=== PATIENT | male | born 1970 | race African-American/Black ===

== ENCOUNTER 2017-06-05 01:13 | Inpatient (IN) | payer SELFPAY ==
[2017-06-05] VITALS (15 sets, daily range): BP systolic 107–148; BP diastolic 77–97
[~2017-06-05] VITALS: Ht 167.6 cm; Wt 86.6 kg
[2017-06-05] MEDS ORDERED: SODIUM CHLORIDE 0.9% 1,000 ML IV ONE ×4 (02:03→09:45)
[2017-06-05 02:26] LABS: Basophils # (auto) 0.1 uL; Eosinophils # (auto) 0 uL; Hemoglobin 17.4 g/dL (13.5-17.5); Monocytes # (auto) 1.6 uL; Monocytes % (auto) 7.2 % (0.0-12.0)
[2017-06-05 02:27] LABS: Basophils % (auto) 0.3 % (0.0-2.0); Lymphocytes # (auto) 0.7 uL; Mean Corpuscular Hemoglobin 32.4 pg (28.0-32.0); Mean Corpuscular Hgb Conc. 30.6 g/dL (32.0-36.0); Mean Corpuscular Volume 105.9 fL (80.0-100.0); Mean Platelet Volume 11.3 fL (6.9-10.8); Neutrophils # (auto) 20.1 uL; Neutrophils % (auto) 89.5 % (37.0-80.0); Nucleated Red Blood Cells % 0.2 %; Platelet Count (auto) 140 10^3/uL (140-450); Red Cell Distribution Width 16.3 % (11.8-14.3); White Blood Cell 22.5 10^3/uL (4.4-10.8)
[2017-06-05] MEDS ORDERED: InsuLIN REG 1unit/0.01ml Soln (100units/ml) IV ONE ×2 (02:30→15:00)
[2017-06-05 02:34] LABS: Hematocrit 56.8 % (41.0-53.0)
[2017-06-05 02:36] LABS: Calcium 11.3 mg/dL (8.5-10.1); Potassium 4.9 mmol/L (3.5-5.1)
[2017-06-05 02:38] LABS: Bilirubin, Total 3.8 mg/dL (0.2-1.0); Total Protein 9.9 g/dL (6.4-8.2)
[2017-06-05 02:39] LABS: BUN/Creatinine Ratio 15.3
[2017-06-05 02:48] LABS: Urine Bilirubin Negative (Negative); Urine Blood 1+ /uL (Negative); Urine Color Yellow (Yellow); Urine Glucose 4+ mg/dL (Normal); Urine Granular Cast FEW /lpf (0); Urine Ketone TRACE (Negative); Urine Mucus FEW (None Seen); Urine Nitrite Negative (Negative); Urine RBC <1 /hpf (0 - 3); Urine Squamous Epithelial Cell FEW /hpf (<5); Urine Urobilinogen Normal (Negative)
[2017-06-05 02:59] LABS: INR 1.11 (0.9-1.15); Partial Thromboplastin Time 21.9 sec (22.64-33.71); Prothrombin Time 12.1 sec (9.37-12.3)
[2017-06-05 03:09] LABS: B-Type Natriuretic Peptide 26.1 pg/mL (0-100); Temperature: 22.2 C (20.0-25.0)
[2017-06-05] MEDS ORDERED: InsuLIN R (HUMAN) 100 UNITS in SODIUM CHL 0.9% 99 ML IV SCH (03:19)
[2017-06-05 03:22] LABS: Allen Test Yes; Base Excess -11.8 mmol/L (-2.0-2.0); Blood 02Sat 91.6 % (96-100); Blood COHb 1.7 % (0.5-1.5); Blood MetHb 0.3 % (0.0-1.5); HCO3 14.3 mmol/L (22-26.0); HHb 8.2 % (0.0-5.0); MODE ROOM AIR; O2Hb 89.8 % (94.0-97.0); PO2 76.6 mmHg (80.0-100.0); PO2(T) 76.6 mmHg (80.0-100.0); Sample Type Arterial; pH 7.243 (7.350-7.450)
[2017-06-05] MEDS ORDERED: DEXTROSE (50%) 50ML SYRG IV PRN ×3 (03:30→19:45)
[2017-06-05 03:48] LABS: Lactic Acid w/Reflex 6.2 mmol/L (0.4-2.0)
[2017-06-05 04:09] LABS: REFLEX LACTIC ACID YES OR NO YES
[2017-06-05] MEDS ORDERED: cefTRIAXone 1GM/50ML D5W 50 ML IV ONE (04:15)
[2017-06-05] MEDS ORDERED: ACCU-CHEK COMFORT CURVE STRIP VI SCH ×2 (04:30→21:00)
[2017-06-05] MEDS ORDERED: FAMOTIDINE (10MG/ML) 2ML VL IV ONE (05:30)
[2017-06-05] MEDS ORDERED: ONDANSETRON HCL 4 MG/2 ML VIAL IV ONE (05:30)
[2017-06-05] MEDS ORDERED: SODIUM CHLORIDE 0.9% 1,000 ML IV SCH ×4 (06:39→14:00)
[2017-06-05] MEDS ORDERED: ONDANSETRON HCL 4 MG/2 ML VIAL IV PRN (06:45)
[2017-06-05] MEDS ORDERED: MORPHINE SULF INJ 2 MG/ML SYRINGE 1ML IV PRN (06:45)
[2017-06-05] MEDS ORDERED: NITROGLYCERIN 0.4 MG SL TAB SL PRN (06:45)
[2017-06-05] MEDS: InsuLIN R (HUMAN) 100 UNITS in SODIUM CHL 0.9% 99 ML IV SCH ×3 (06:51→16:39)
[2017-06-05] MEDS ORDERED: VANCOMYCIN PER PHARMACY 0 MG IV SCH (07:00)
[2017-06-05] MEDS: ACCU-CHEK COMFORT CURVE STRIP VI SCH ×11 (07:42→22:46)
[2017-06-05] MEDS: PIPERACILLIN-TAZOB 3.375GM 100 ML IV SCH ×3 (08:06→18:26)
[2017-06-05 08:08] LABS: Lactic Acid w/Reflex 4.3 mmol/L (0.4-2.0)
[2017-06-05 08:13] LABS: BUN/Creatinine Ratio 18.7; Calcium 8.8 mg/dL (8.5-10.1); Potassium 3.8 mmol/L (3.5-5.1)
[2017-06-05 08:17] LABS: Amylase 559 U/L (25-115)
[2017-06-05] MEDS ORDERED: SOD CHL 0.45% WITH 20MEQ KCL 1,000 ML IV SCH ×2 (08:30→11:45)
[2017-06-05 08:42] LABS: REFLEX LACTIC ACID YES OR NO YES
[2017-06-05 09:28] LABS: BUN/Creatinine Ratio 19.2; Calcium 9.5 mg/dL (8.5-10.1); Potassium 3.9 mmol/L (3.5-5.1)
[2017-06-05] MEDS: POTASSIUM CHL 20MEQ/100ML 100 ML IV SCH ×2 (09:58→11:23)
[2017-06-05] MEDS ORDERED: VANCOMYCIN 1GM/250ML D5W 250 ML IV SCH (10:00)
[2017-06-05 11:47] LABS: Urine Bilirubin Negative (Negative); Urine Blood 1+ /uL (Negative); Urine Color Yellow (Yellow); Urine Glucose 4+ mg/dL (Normal); Urine Ketone Negative (Negative); Urine Nitrite Negative (Negative); Urine RBC <1 /hpf (0 - 3); Urine Urobilinogen Normal (Negative)
[2017-06-05 12:58] LABS: Calcium 9.1 mg/dL (8.5-10.1); Potassium 4.4 mmol/L (3.5-5.1)
[2017-06-05] MEDS: PROMETHAZINE HCL 25 MG/ML 1ML IV PRN (13:08)
[2017-06-05 13:26] LABS: BUN/Creatinine Ratio 17.8
[2017-06-05] MEDS ORDERED: DILTIAZEM HCL 25 MG/5 ML VIAL IV ONE ×2 (13:26→13:30)
[2017-06-05 13:48] LABS: Magnesium 3.9 mg/dL (1.6-2.6); Phosphorus 1.4 mg/dL (2.5-4.90)
[2017-06-05] MEDS ORDERED: THIAMINE HCL 100 MG/ML 2ML VIAL IV ONE (15:00)
[2017-06-05] MEDS ORDERED: PANTOPRAZOLE 40 MG/10 ML VIAL IV ONE (15:00)
[2017-06-05 15:21] LABS: Base Excess -3.2 mmol/L (-2.0-2.0); Blood 02Sat 94.6 % (96-100); Blood COHb 1.1 % (0.5-1.5); Blood MetHb 0.3 % (0.0-1.5); HCO3 20.7 mmol/L (22-26.0); HHb 5.3 % (0.0-5.0); MODE NASAL CANNULA; O2Hb 93.3 % (94.0-97.0); PO2 78.4 mmHg (80.0-100.0); PO2(T) 78.4 mmHg (80.0-100.0); Room 1020-ERT; Sample Type Arterial; pH 7.402 (7.350-7.450)
[2017-06-05] MEDS: D5W/SOD CHL 0.45%/KCL 20MEQ 1,000 ML IV SCH ×2 (15:28→23:20)
[2017-06-05 22:47] LABS: BUN/Creatinine Ratio 14.9; Calcium 9.1 mg/dL (8.5-10.1); Potassium 4.1 mmol/L (3.5-5.1)
[2017-06-06] VITALS (31 sets, daily range): BP systolic 116–166; BP diastolic 54–102
[2017-06-06] MEDS: ACCU-CHEK COMFORT CURVE STRIP VI SCH ×16 (00:25→22:26)
[2017-06-06] MEDS: PIPERACILLIN-TAZOB 3.375GM 100 ML IV SCH ×4 (00:41→18:38)
[2017-06-06 04:01] LABS: Basophils # (auto) 0 uL; Basophils % (auto) 0.1 % (0.0-2.0); Eosinophils # (auto) 0 uL; Eosinophils % (auto) 0.1 % (0.0-7.0); Hematocrit 45.4 % (41.0-53.0); Hemoglobin 14.6 g/dL (13.5-17.5); Lymphocytes # (auto) 0.8 uL; Mean Corpuscular Hemoglobin 32.2 pg (28.0-32.0); Mean Corpuscular Hgb Conc. 32.2 g/dL (32.0-36.0); Mean Platelet Volume 10.3 fL (6.9-10.8); Monocytes # (auto) 1.3 uL; Monocytes % (auto) 7.1 % (0.0-12.0); Neutrophils # (auto) 16.6 uL; Neutrophils % (auto) 88.7 % (37.0-80.0); Nucleated Red Blood Cells % 0.2 %; Platelet Count (auto) 94 10^3/uL (140-450); Red Cell Distribution Width 16.6 % (11.8-14.3); White Blood Cell 18.7 10^3/uL (4.4-10.8)
[2017-06-06 04:20] LABS: Albumin 3.2 g/dL (3.4-5.0); Calcium 8.8 mg/dL (8.5-10.1); Potassium 4.5 mmol/L (3.5-5.1)
[2017-06-06 04:35] LABS: Total Protein 7.2 g/dL (6.4-8.2)
[2017-06-06] MEDS: D5W 5% 1,000 ML IV SCH ×3 (08:20→21:05)
[2017-06-06] MEDS: THIAMINE HCL 100 MG/ML 2ML VIAL IV SCH (10:11)
[2017-06-06] MEDS: PANTOPRAZOLE 40 MG/10 ML VIAL IV SCH (10:11)
[2017-06-06] MEDS: InsuLIN R (HUMAN) 100 UNITS in SODIUM CHL 0.9% 99 ML IV SCH ×2 (19:27→21:31)
[2017-06-06] MEDS: MORPHINE SULF INJ 2 MG/ML SYRINGE 1ML IV PRN (22:37)
[2017-06-07] VITALS (68 sets, daily range): BP systolic 127–165; BP diastolic 67–117
[2017-06-07] MEDS: ACCU-CHEK COMFORT CURVE STRIP VI SCH ×17 (00:05→23:59)
[2017-06-07] MEDS: PIPERACILLIN-TAZOB 3.375GM 100 ML IV SCH ×4 (01:25→18:37)
[2017-06-07 02:41] LABS: Basophils # (auto) 0.1 uL; Basophils % (auto) 0.4 % (0.0-2.0); Eosinophils # (auto) 0.1 uL; Eosinophils % (auto) 0.4 % (0.0-7.0); Hematocrit 40.1 % (41.0-53.0); Lymphocytes # (auto) 1.2 uL; Lymphocytes % (auto) 7.7 % (10.0-50.0); Mean Corpuscular Hemoglobin 31.9 pg (28.0-32.0); Mean Corpuscular Hgb Conc. 32.5 g/dL (32.0-36.0); Mean Corpuscular Volume 98.2 fL (80.0-100.0); Mean Platelet Volume 9.6 fL (6.9-10.8); Monocytes # (auto) 0.9 uL; Neutrophils # (auto) 12.9 uL; Neutrophils % (auto) 85.5 % (37.0-80.0); Nucleated Red Blood Cells % 0.2 %; Platelet Count (auto) 86 10^3/uL (140-450); Red Cell Distribution Width 16.5 % (11.8-14.3); White Blood Cell 15.1 10^3/uL (4.4-10.8)
[2017-06-07] MEDS ORDERED: FUROSEMIDE 20 MG/2 ML VIAL ONE (02:47)
[2017-06-07] MEDS ORDERED: FUROSEMIDE 20 MG/2 ML VIAL IV ONE (03:00)
[2017-06-07 03:04] LABS: BUN/Creatinine Ratio 11.4; Calcium 7.7 mg/dL (8.5-10.1); Potassium 3.4 mmol/L (3.5-5.1)
[2017-06-07] MEDS: D5W 5% 1,000 ML IV SCH (03:45)
[2017-06-07] MEDS: MORPHINE SULF INJ 2 MG/ML SYRINGE 1ML IV PRN (06:25)
[2017-06-07] MEDS: InsuLIN R (HUMAN) 100 UNITS in SODIUM CHL 0.9% 99 ML IV SCH ×2 (07:54→23:37)
[2017-06-07] MEDS ORDERED: POTASSIUM PHOSPHATE 44 MEQ in SODIUM CHL 0.9% 250 ML IV ONE (08:15)
[2017-06-07] MEDS: THIAMINE HCL 100 MG/ML 2ML VIAL IV SCH (08:57)
[2017-06-07] MEDS: PANTOPRAZOLE 40 MG/10 ML VIAL IV SCH (08:58)
[2017-06-07] MEDS: POTASSIUM CHLORIDE 20 MEQ in D5W 5% 1,000 ML IV SCH ×2 (08:58→23:59)
[2017-06-07 09:19] LABS: Amylase 302 U/L (25-115)
[2017-06-07 18:27] LABS: BUN/Creatinine Ratio 9.1; Calcium 7.2 mg/dL (8.5-10.1); Magnesium 2.1 mg/dL (1.6-2.6); Potassium 3.7 mmol/L (3.5-5.1)
[2017-06-07] MEDS: PROMETHAZINE HCL 25 MG/ML 1ML IV PRN (19:40)
[2017-06-07] MEDS ORDERED: METOPROLOL TARTRATE 25 MG TAB PO ONE (22:45)
[2017-06-08] VITALS (56 sets, daily range): BP systolic 88–151; BP diastolic 39–86
[2017-06-08] MEDS: MORPHINE SULF INJ 2 MG/ML SYRINGE 1ML IV PRN (00:02)
[2017-06-08] MEDS: PIPERACILLIN-TAZOB 3.375GM 100 ML IV SCH ×2 (00:30→06:37)
[2017-06-08] MEDS: ACCU-CHEK COMFORT CURVE STRIP VI SCH ×10 (01:47→21:54)
[2017-06-08] MEDS: ALBUTEROL SULF 2.5 MG/0.5ML(0.5%) NEB SOLN NEB PRN ×2 (03:09→03:42)
[2017-06-08 03:39] LABS: Basophils # (auto) 0 uL; Basophils % (auto) 0.4 % (0.0-2.0); Eosinophils # (auto) 0.1 uL; Eosinophils % (auto) 0.5 % (0.0-7.0); Hematocrit 36.8 % (41.0-53.0); Hemoglobin 12.3 g/dL (13.5-17.5); Lymphocytes # (auto) 0.9 uL; Lymphocytes % (auto) 8.2 % (10.0-50.0); Mean Corpuscular Hemoglobin 32.7 pg (28.0-32.0); Mean Corpuscular Hgb Conc. 33.4 g/dL (32.0-36.0); Mean Platelet Volume 10.3 fL (6.9-10.8); Monocytes # (auto) 0.8 uL; Monocytes % (auto) 7.1 % (0.0-12.0); Neutrophils # (auto) 9.6 uL; Neutrophils % (auto) 83.8 % (37.0-80.0); Nucleated Red Blood Cells % 0.2 %; Platelet Count (auto) 71 10^3/uL (140-450); White Blood Cell 11.4 10^3/uL (4.4-10.8)
[2017-06-08 03:59] LABS: Albumin 2.7 g/dL (3.4-5.0); BUN/Creatinine Ratio 9.3; Bilirubin, Total 3.3 mg/dL (0.2-1.0); Calcium 7.2 mg/dL (8.5-10.1); Phosphorus 2.1 mg/dL (2.5-4.90); Potassium 3.4 mmol/L (3.5-5.1); Total Protein 6.3 g/dL (6.4-8.2)
[2017-06-08] MEDS ORDERED: METOCLOPRAMIDE HCL 5MG/ml INJ 2ml VIAL IV ONE (08:30)
[2017-06-08] MEDS ORDERED: POTASSIUM PHOSPHATE 44 MEQ in SODIUM CHL 0.9% 250 ML IV ONE (08:30)
[2017-06-08] MEDS ORDERED: INSULIN DETEMIR(LEVEMIR) 1unit/0.01ml Soln (100units/ml) SC ONE (08:30)
[2017-06-08] MEDS ORDERED: ACETAMINOPHEN 325 MG TAB PO PRN (08:45)
[2017-06-08] MEDS: PANTOPRAZOLE 40 MG TAB PO SCH ×2 (09:28→21:54)
[2017-06-08] MEDS: THIAMINE HCL 100 MG/ML 2ML VIAL IV SCH (09:31)
[2017-06-08] MEDS ORDERED: METOPROLOL TARTRATE 25 MG TAB PO SCH (10:00)
[2017-06-08] MEDS: POTASSIUM CHLORIDE 20 MEQ in D5W 5% 1,000 ML IV SCH ×2 (10:45→17:06)
[2017-06-08] MEDS ORDERED: DEXTROSE (50%) 50ML SYRG IV PRN (10:45)
[2017-06-08] MEDS: InsuLIN REG 1unit/0.01ml Soln (100units/ml) SC SCH ×3 (11:54→21:54)
[2017-06-08] MEDS ORDERED: InsuLIN R (HUMAN) 100 UNITS in SODIUM CHL 0.9% 99 ML IV SCH (19:37)
[2017-06-09] VITALS (10 sets, daily range): BP systolic 103–132; BP diastolic 54–86
[2017-06-09] MEDS: MORPHINE SULF INJ 2 MG/ML SYRINGE 1ML IV PRN (00:33)
[2017-06-09] MEDS: POTASSIUM CHLORIDE 20 MEQ in D5W 5% 1,000 ML IV SCH ×3 (02:45→23:46)
[2017-06-09 03:42] LABS: Basophils # (auto) 0 uL; Basophils % (auto) 0.5 % (0.0-2.0); Eosinophils # (auto) 0.1 uL; Eosinophils % (auto) 0.8 % (0.0-7.0); Hematocrit 36.3 % (41.0-53.0); Hemoglobin 12.2 g/dL (13.5-17.5); Lymphocytes # (auto) 0.9 uL; Lymphocytes % (auto) 9.6 % (10.0-50.0); Mean Corpuscular Hemoglobin 32.9 pg (28.0-32.0); Mean Corpuscular Hgb Conc. 33.6 g/dL (32.0-36.0); Mean Corpuscular Volume 97.8 fL (80.0-100.0); Mean Platelet Volume 10.5 fL (6.9-10.8); Monocytes # (auto) 0.6 uL; Monocytes % (auto) 6.8 % (0.0-12.0); Neutrophils # (auto) 7.7 uL; Neutrophils % (auto) 82.3 % (37.0-80.0); Nucleated Red Blood Cells % 0.2 %; Platelet Count (auto) 81 10^3/uL (140-450); Red Cell Distribution Width 15.4 % (11.8-14.3); White Blood Cell 9.3 10^3/uL (4.4-10.8)
[2017-06-09 03:58] LABS: Albumin 2.7 g/dL (3.4-5.0); BUN/Creatinine Ratio 11.1; Calcium 7.7 mg/dL (8.5-10.1); Potassium 3.8 mmol/L (3.5-5.1)
[2017-06-09 04:02] LABS: Total Protein 6.5 g/dL (6.4-8.2)
[2017-06-09] MEDS: InsuLIN REG 1unit/0.01ml Soln (100units/ml) SC SCH ×4 (06:38→22:41)
[2017-06-09] MEDS: ACCU-CHEK COMFORT CURVE STRIP VI SCH ×4 (06:38→22:00)
[2017-06-09] MEDS ORDERED: LEVALBUTEROL HCL 1.25 MG/3 ML NEB NEB PRN (07:15)
[2017-06-09] MEDS ORDERED: INSULIN DETEMIR(LEVEMIR) 1unit/0.01ml Soln (100units/ml) SC ONE (09:00)
[2017-06-09] MEDS: PANTOPRAZOLE 40 MG TAB PO SCH ×2 (10:40→22:41)
[2017-06-09] MEDS: THIAMINE HCL 100 MG/ML 2ML VIAL IV SCH (10:40)
[2017-06-09] MEDS: INSULIN DETEMIR(LEVEMIR) 1unit/0.01ml Soln (100units/ml) SC SCH (22:42)
[2017-06-10 05:00] VITALS: BP 123/76
[2017-06-10 05:19] LABS: Basophils # (auto) 0 uL; Basophils % (auto) 0.2 % (0.0-2.0); Eosinophils # (auto) 0.1 uL; Eosinophils % (auto) 1.1 % (0.0-7.0); Hematocrit 35.7 % (41.0-53.0); Lymphocytes # (auto) 0.9 uL; Lymphocytes % (auto) 8.6 % (10.0-50.0); Mean Corpuscular Hemoglobin 32.9 pg (28.0-32.0); Mean Corpuscular Hgb Conc. 33.7 g/dL (32.0-36.0); Mean Corpuscular Volume 97.6 fL (80.0-100.0); Mean Platelet Volume 10.5 fL (6.9-10.8); Monocytes # (auto) 0.7 uL; Neutrophils # (auto) 8.6 uL; Neutrophils % (auto) 83.1 % (37.0-80.0); Nucleated Red Blood Cells % 0.1 %; Platelet Count (auto) 101 10^3/uL (140-450); Red Cell Distribution Width 15.2 % (11.8-14.3); White Blood Cell 10.4 10^3/uL (4.4-10.8)
[2017-06-10 05:37] LABS: Calcium 9.7 mg/dL (8.5-10.1); Potassium 4.2 mmol/L (3.5-5.1)
[2017-06-10 05:41] LABS: BUN/Creatinine Ratio 17.1
[2017-06-10] MEDS: ACCU-CHEK COMFORT CURVE STRIP VI SCH ×4 (06:36→22:00)
[2017-06-10] MEDS: INSULIN DETEMIR(LEVEMIR) 1unit/0.01ml Soln (100units/ml) SC SCH ×2 (06:37→22:32)
[2017-06-10] MEDS: InsuLIN REG 1unit/0.01ml Soln (100units/ml) SC SCH ×4 (06:38→22:33)
[2017-06-10 09:43] VITALS: BP 140/79
[2017-06-10] MEDS: ENOXAPARIN SOD 40 MG/0.4 ML SYRINGE SC SCH (11:26)
[2017-06-10] MEDS: PANTOPRAZOLE 40 MG TAB PO SCH ×2 (11:26→22:31)
[2017-06-10] MEDS: THIAMINE HCL 100 MG/ML 2ML VIAL IV SCH (11:26)
[2017-06-10 11:41] VITALS: BP 136/76
[2017-06-10] MEDS: glipiZIDE 5 MG TAB PO SCH (11:57)
[2017-06-10] MEDS: POTASSIUM CHLORIDE 20 MEQ in D5W 5% 1,000 ML IV SCH (12:26)
[2017-06-10 16:59] VITALS: BP 125/69
[2017-06-10 20:00] VITALS: BP 124/85
[2017-06-10 21:33] VITALS: BP 124/85
[2017-06-11] MEDS: POTASSIUM CHLORIDE 20 MEQ in D5W 5% 1,000 ML IV SCH (01:54)
[2017-06-11 04:30] VITALS: BP 119/78
[2017-06-11] MEDS: glipiZIDE 5 MG TAB PO SCH (07:08)
[2017-06-11] MEDS: InsuLIN REG 1unit/0.01ml Soln (100units/ml) SC SCH ×2 (07:09→11:30)
[2017-06-11] MEDS: ACCU-CHEK COMFORT CURVE STRIP VI SCH ×2 (07:10→11:30)
[2017-06-11] MEDS: INSULIN DETEMIR(LEVEMIR) 1unit/0.01ml Soln (100units/ml) SC SCH (07:10)
[2017-06-11 07:44] VITALS: BP 143/87
[2017-06-11] MEDS: THIAMINE HCL 100 MG/ML 2ML VIAL IV SCH (09:11)
[2017-06-11] MEDS: PANTOPRAZOLE 40 MG TAB PO SCH (09:12)
[2017-06-11] MEDS: ENOXAPARIN SOD 40 MG/0.4 ML SYRINGE SC SCH (09:12)
[2017-06-11 11:39] VITALS: BP 143/87
[2017-06-11 13:00] VITALS: BP 115/63
== END 2017-06-11 14:10 | disposition home or self-care (01) | DRG 871 ==
LOC: EDBD 01:13 → ER 01:21 → TELE 01:22 → ICU WEST 20:05 → TELE-CENTR 06-09 13:50
PROVIDERS: ADMIT Nurse Practitioner Family; ATTEND Internal Medicine
DX: A41.9 Sepsis, unspecified organism (principal); J96.90 Respiratory failure, unspecified, unspecified whether with hypoxia or hypercapnia; N17.0 Acute kidney failure with tubular necrosis; K85.90 Acute pancreatitis without necrosis or infection, unspecified; E13.10 Other specified diabetes mellitus with ketoacidosis without coma; G93.41 Metabolic encephalopathy; E87.0 Hyperosmolality and hypernatremia; D64.9 Anemia, unspecified; E86.0 Dehydration; E87.6 Hypokalemia; Z83.3 Family history of diabetes mellitus; Z79.4 Long term (current) use of insulin
CPT/HCPCS: 36415; 36600; 70450; 71010; 74176; 76705; 78582; 80048; 80053; 80061; 80202; 80307; 81001; 82010; 82040; 82150; 82805; 82962; 83036; 83605; 83690; 83735; 83880; 83930; 83935; 84100; 84300; 84443; 84484; 85025; 85379; 85610; 85730; 87040; 87081; 93005; 93306; 93970; 94640; 96361; 96365; 96375; C9113; J0696; J1815; J2405; J2543; J3480; J3490

== ENCOUNTER 2017-06-18 01:58 | Inpatient (IN) | payer SELFPAY ==
[~2017-06-18] VITALS: Ht 167.6 cm; Wt 84.0 kg
[2017-06-18] MEDS ORDERED: SODIUM CHLORIDE 0.9% 1,000 ML IV ONE ×2 (02:30→02:45)
[2017-06-18] MEDS ORDERED: InsuLIN REG 1unit/0.01ml Soln (100units/ml) IV ONE ×2 (02:30→02:45)
[2017-06-18 03:22] LABS: Hemoglobin 12.4 g/dL (13.5-17.5); Mean Corpuscular Hemoglobin 31.7 pg (28.0-32.0); Mean Corpuscular Hgb Conc. 30.3 g/dL (32.0-36.0); Mean Corpuscular Volume 104.5 fL (80.0-100.0); Mean Platelet Volume 11.2 fL (6.9-10.8); Platelet Count (auto) 249 10^3/uL (140-450); Red Cell Distribution Width 17.8 % (11.8-14.3); White Blood Cell 16.8 10^3/uL (4.4-10.8)
[2017-06-18 03:23] LABS: Metamyelocytes % 0; Myelocytes % 0; Promyelocytes % 0; Reactive Lymphocytes 0
[2017-06-18 03:48] LABS: Macrocytosis Moderate; Platelet Estimate Adequate; Polychromasia Slight; Stomatocytes Few
[2017-06-18 05:20] LABS: Potassium 6.5 mmol/L (3.5-5.1)
[2017-06-18 05:21] LABS: Albumin 3.4 g/dL (3.4-5.0); BUN/Creatinine Ratio 19.5; Bilirubin, Total 2.2 mg/dL (0.2-1.0); Calcium 8.8 mg/dL (8.5-10.1); Total Protein 8.4 g/dL (6.4-8.2)
[2017-06-18] MEDS ORDERED: InsuLIN R (HUMAN) 100 UNITS in SODIUM CHL 0.9% 99 ML IV SCH (05:34)
[2017-06-18] MEDS ORDERED: DEXTROSE (50%) 50ML SYRG IV PRN (05:45)
[2017-06-18] MEDS ORDERED: NITROGLYCERIN 0.4 MG SL TAB SL PRN (05:45)
[2017-06-18] MEDS ORDERED: CALCIUM CHL 100MG/ML 1,000 MG in D5W 5% 100 ML IV ONE (05:45)
[2017-06-18] MEDS ORDERED: MORPHINE SULF INJ 2 MG/ML SYRINGE 1ML IV PRN ×2 (05:45→06:30)
[2017-06-18] MEDS ORDERED: SODIUM POLYSTYRENE SULF 15GM/60ML SUSP PO ONE (05:45)
[2017-06-18 05:52] LABS: Urine RBC None Seen /hpf (0 - 3)
[2017-06-18 06:00] LABS: Base Excess -9.9 mmol/L (-2.0-2.0); Blood 02Sat 96.4 % (96-100); Blood COHb 0.5 % (0.5-1.5); Blood MetHb 0.4 % (0.0-1.5); HCO3 15.3 mmol/L (22-26.0); HHb 3.6 % (0.0-5.0); MODE NASAL CANNULA; O2Hb 95.5 % (94.0-97.0); PCO2 31.3 mmHg (35.0-45.0); PCO2(T) 31.3 mmHg (35.0-45.0); PO2 105.9 mmHg (80.0-100.0); PO2(T) 105.9 mmHg (80.0-100.0); Sample Type Arterial; pH 7.307 (7.350-7.450)
[2017-06-18 06:15] LABS: Urine Bilirubin Negative (Negative); Urine Blood Negative /uL (Negative); Urine Color Yellow (Yellow); Urine Glucose 4+ mg/dL (Normal); Urine Ketone 1+ (Negative); Urine Nitrite Negative (Negative); Urine Squamous Epithelial Cell FEW /hpf (<5); Urine Urobilinogen Normal (Negative)
[2017-06-18] MEDS ORDERED: ONDANSETRON HCL 4 MG/2 ML VIAL IV PRN (06:30)
[2017-06-18 07:09] LABS: Magnesium 3.8 mg/dL (1.6-2.6); Phosphorus 7.9 mg/dL (2.5-4.90)
[2017-06-18] MEDS: ACCU-CHEK COMFORT CURVE STRIP VI SCH ×12 (07:30→22:36)
[2017-06-18] MEDS: SODIUM CHLORIDE 0.9% 1,000 ML IV SCH ×2 (08:03→09:03)
[2017-06-18] MEDS ORDERED: SODIUM CHLORIDE 0.9% 1,000 ML IV SCH ×2 (09:34→11:34)
[2017-06-18] MEDS: cefTRIAXone 1GM/50ML D5W 50 ML IV SCH (10:59)
[2017-06-18 11:28] LABS: Amylase 54 U/L (25-115)
[2017-06-18 17:48] LABS: BUN/Creatinine Ratio 19.8; Calcium 9.2 mg/dL (8.5-10.1); Potassium 3.3 mmol/L (3.5-5.1)
[2017-06-18] MEDS: SOD CHL 0.45% 1,000 ML IV SCH (18:57)
[2017-06-19] MEDS: ACCU-CHEK COMFORT CURVE STRIP VI SCH ×6 (00:02→20:20)
[2017-06-19] MEDS ORDERED: DEXTROSE (50%) 50ML SYRG IV PRN ×2 (00:30→13:30)
[2017-06-19 01:15] LABS: BUN/Creatinine Ratio 18.1; Calcium 9.1 mg/dL (8.5-10.1); Potassium 3.2 mmol/L (3.5-5.1)
[2017-06-19] MEDS: SOD CHL 0.45% 1,000 ML IV SCH ×2 (01:32→07:46)
[2017-06-19] MEDS: InsuLIN REG 1unit/0.01ml Soln (100units/ml) SC SCH ×5 (04:03→20:21)
[2017-06-19 06:06] LABS: Basophils # (auto) 0.1 uL; Basophils % (auto) 0.7 % (0.0-2.0); Eosinophils # (auto) 0 uL; Eosinophils % (auto) 0.3 % (0.0-7.0); Hematocrit 33.1 % (41.0-53.0); Hemoglobin 10.8 g/dL (13.5-17.5); Lymphocytes # (auto) 0.8 uL; Lymphocytes % (auto) 9.4 % (10.0-50.0); Mean Corpuscular Hemoglobin 32.4 pg (28.0-32.0); Mean Corpuscular Hgb Conc. 32.8 g/dL (32.0-36.0); Mean Corpuscular Volume 98.9 fL (80.0-100.0); Mean Platelet Volume 9.7 fL (6.9-10.8); Monocytes # (auto) 0.5 uL; Monocytes % (auto) 5.5 % (0.0-12.0); Neutrophils # (auto) 7.3 uL; Neutrophils % (auto) 84.1 % (37.0-80.0); Nucleated Red Blood Cells % 0.2 %; Platelet Count (auto) 136 10^3/uL (140-450); Red Cell Distribution Width 17.3 % (11.8-14.3); White Blood Cell 8.7 10^3/uL (4.4-10.8)
[2017-06-19 06:23] LABS: Albumin 2.8 g/dL (3.4-5.0); Calcium 8.7 mg/dL (8.5-10.1); Potassium 3.4 mmol/L (3.5-5.1)
[2017-06-19 06:28] LABS: BUN/Creatinine Ratio 16.7
[2017-06-19 06:41] LABS: Bilirubin, Total 1.9 mg/dL (0.2-1.0); Total Protein 6.8 g/dL (6.4-8.2)
[2017-06-19] MEDS: cefTRIAXone 1GM/50ML D5W 50 ML IV SCH (08:29)
[2017-06-19] MEDS ORDERED: POTASSIUM CHLORIDE 20 MEQ in D5W 5% 1,000 ML IV SCH (13:15)
[2017-06-19] MEDS ORDERED: LEVEMIR SC (15:12)
[2017-06-19] MEDS ORDERED: METF-370 PO (15:12)
[2017-06-19 17:00] VITALS: BP 122/68
[2017-06-19] MEDS: Boost Glucose Control 8 Ounces PO SCH (18:02)
[2017-06-19 19:23] LABS: BUN/Creatinine Ratio 15.4; Calcium 8.4 mg/dL (8.5-10.1); Potassium 3.2 mmol/L (3.5-5.1)
[2017-06-19 21:40] VITALS: BP 131/74
[2017-06-20] MEDS: ACCU-CHEK COMFORT CURVE STRIP VI SCH ×6 (00:06→20:38)
[2017-06-20] MEDS: InsuLIN REG 1unit/0.01ml Soln (100units/ml) SC SCH ×6 (00:13→20:38)
[2017-06-20] MEDS ORDERED: D5W/ SOD CHL 0.9%/KCL 20MEQ 1,000 ML IV SCH (03:15)
[2017-06-20 05:20] VITALS: BP 114/58
[2017-06-20 06:52] LABS: Basophils # (auto) 0.1 uL; Basophils % (auto) 0.8 % (0.0-2.0); Eosinophils # (auto) 0 uL; Eosinophils % (auto) 0.7 % (0.0-7.0); Hemoglobin 10.1 g/dL (13.5-17.5); Lymphocytes # (auto) 0.6 uL; Lymphocytes % (auto) 9.3 % (10.0-50.0); Mean Corpuscular Hemoglobin 32.8 pg (28.0-32.0); Mean Corpuscular Hgb Conc. 33.5 g/dL (32.0-36.0); Mean Corpuscular Volume 97.8 fL (80.0-100.0); Mean Platelet Volume 9.6 fL (6.9-10.8); Monocytes # (auto) 0.3 uL; Monocytes % (auto) 4.9 % (0.0-12.0); Neutrophils # (auto) 5.8 uL; Neutrophils % (auto) 84.3 % (37.0-80.0); Nucleated Red Blood Cells % 0.4 %; Platelet Count (auto) 115 10^3/uL (140-450); Red Cell Distribution Width 16.7 % (11.8-14.3); White Blood Cell 6.8 10^3/uL (4.4-10.8)
[2017-06-20 07:13] LABS: Albumin 2.6 g/dL (3.4-5.0); Calcium 8.6 mg/dL (8.5-10.1)
[2017-06-20 07:18] LABS: BUN/Creatinine Ratio 16.6; Bilirubin, Total 1.9 mg/dL (0.2-1.0); Total Protein 6.1 g/dL (6.4-8.2)
[2017-06-20] MEDS: Boost Glucose Control 8 Ounces PO SCH ×3 (07:58→18:16)
[2017-06-20 08:22] VITALS: BP 125/65
[2017-06-20] MEDS: cefTRIAXone 1GM/50ML D5W 50 ML IV SCH (08:57)
[2017-06-20 13:00] VITALS: BP 120/63
[2017-06-20] MEDS: POTASSIUM CHLORIDE 20 MEQ in D5W 5% 1,000 ML IV SCH (16:32)
[2017-06-20 16:34] VITALS: BP 126/62
[2017-06-20 22:00] VITALS: BP 122/68
[2017-06-21] VITALS (8 sets, daily range): BP systolic 107–121; BP diastolic 60–70
[2017-06-21] MEDS: ACCU-CHEK COMFORT CURVE STRIP VI SCH ×6 (00:10→20:17)
[2017-06-21] MEDS: InsuLIN REG 1unit/0.01ml Soln (100units/ml) SC SCH ×6 (00:18→20:17)
[2017-06-21] MEDS: POTASSIUM CHLORIDE 20 MEQ in D5W 5% 1,000 ML IV SCH (01:06)
[2017-06-21 07:43] LABS: Basophils # (auto) 0 uL; Basophils % (auto) 0.9 % (0.0-2.0); Eosinophils # (auto) 0 uL; Eosinophils % (auto) 0.8 % (0.0-7.0); Hematocrit 29.5 % (41.0-53.0); Hemoglobin 9.8 g/dL (13.5-17.5); Lymphocytes # (auto) 0.8 uL; Lymphocytes % (auto) 15.3 % (10.0-50.0); Mean Corpuscular Hemoglobin 32.8 pg (28.0-32.0); Mean Corpuscular Hgb Conc. 33.3 g/dL (32.0-36.0); Mean Corpuscular Volume 98.4 fL (80.0-100.0); Mean Platelet Volume 9.8 fL (6.9-10.8); Monocytes # (auto) 0.3 uL; Monocytes % (auto) 5.1 % (0.0-12.0); Neutrophils # (auto) 4.1 uL; Neutrophils % (auto) 77.9 % (37.0-80.0); Nucleated Red Blood Cells % 0.3 %; Platelet Count (auto) 98 10^3/uL (140-450); Red Cell Distribution Width 16.2 % (11.8-14.3); White Blood Cell 5.3 10^3/uL (4.4-10.8)
[2017-06-21 07:51] LABS: Albumin 2.8 g/dL (3.4-5.0); BUN/Creatinine Ratio 14.4; Calcium 8.8 mg/dL (8.5-10.1)
[2017-06-21 07:54] LABS: Total Protein 6.5 g/dL (6.4-8.2)
[2017-06-21] MEDS: cefTRIAXone 1GM/50ML D5W 50 ML IV SCH (08:10)
[2017-06-21] MEDS: Boost Glucose Control 8 Ounces PO SCH ×3 (08:10→17:47)
[2017-06-21] MEDS: SOD CHL 0.45% WITH 20MEQ KCL 1,000 ML IV SCH ×2 (11:00→19:20)
[2017-06-22] MEDS: InsuLIN REG 1unit/0.01ml Soln (100units/ml) SC SCH ×5 (00:01→16:00)
[2017-06-22] MEDS: ACCU-CHEK COMFORT CURVE STRIP VI SCH ×5 (00:01→16:00)
[2017-06-22] MEDS: SOD CHL 0.45% WITH 20MEQ KCL 1,000 ML IV SCH ×2 (03:23→12:00)
[2017-06-22 05:47] VITALS: BP 119/72
[2017-06-22 06:54] LABS: Basophils # (auto) 0.1 uL; Basophils % (auto) 1.1 % (0.0-2.0); Eosinophils # (auto) 0.1 uL; Hematocrit 27.7 % (41.0-53.0); Hemoglobin 9.2 g/dL (13.5-17.5); Lymphocytes # (auto) 0.8 uL; Lymphocytes % (auto) 15.6 % (10.0-50.0); Mean Corpuscular Hemoglobin 32.6 pg (28.0-32.0); Mean Corpuscular Hgb Conc. 33.1 g/dL (32.0-36.0); Mean Corpuscular Volume 98.6 fL (80.0-100.0); Monocytes # (auto) 0.3 uL; Monocytes % (auto) 6.8 % (0.0-12.0); Neutrophils # (auto) 3.7 uL; Neutrophils % (auto) 75.5 % (37.0-80.0); Nucleated Red Blood Cells % 0.5 %; Platelet Count (auto) 82 10^3/uL (140-450); Red Cell Distribution Width 16.1 % (11.8-14.3); White Blood Cell 4.9 10^3/uL (4.4-10.8)
[2017-06-22 07:29] LABS: Albumin 2.6 g/dL (3.4-5.0); BUN/Creatinine Ratio 12.1; Bilirubin, Total 2.1 mg/dL (0.2-1.0); Calcium 8.5 mg/dL (8.5-10.1); Phosphorus 3.2 mg/dL (2.5-4.90); Potassium 3.3 mmol/L (3.5-5.1); Total Protein 6.4 g/dL (6.4-8.2)
[2017-06-22] MEDS: Boost Glucose Control 8 Ounces PO SCH ×2 (07:37→12:10)
[2017-06-22 08:05] VITALS: BP 139/63
[2017-06-22] MEDS: cefTRIAXone 1GM/50ML D5W 50 ML IV SCH (09:00)
[2017-06-22] MEDS ORDERED: POTASSIUM CHL 20 Meq TABLET PO SCH (10:00)
[2017-06-22 12:32] VITALS: BP 111/69
[2017-06-22] MEDS ORDERED: POTASSIUM CHL 20 Meq TABLET PO ONE (13:00)
[2017-06-22 15:21] VITALS: BP 111/69
[2017-06-22 17:09] VITALS: BP 133/110
[2017-06-23] MEDS ORDERED: POTASSIUM CHL 20 Meq TABLET PO SCH (10:00)
== END 2017-06-22 18:50 | disposition home or self-care (01) | DRG 637 ==
LOC: ER 02:00 → TELE 02:01 → TELE-WESTW 06-19 15:39 → WEST WING 06-19 17:50 → TELE-WESTW 06-20 00:05
PROVIDERS: ADMIT Nurse Practitioner Family; ATTEND Family Medicine
DX: E11.10 Type 2 diabetes mellitus with ketoacidosis without coma (principal); N17.0 Acute kidney failure with tubular necrosis; E44.0 Moderate protein-calorie malnutrition; E87.0 Hyperosmolality and hypernatremia; J98.11 Atelectasis; E87.1 Hypo-osmolality and hyponatremia; E87.5 Hyperkalemia; D64.9 Anemia, unspecified; E11.21 Type 2 diabetes mellitus with diabetic nephropathy; J40 Bronchitis, not specified as acute or chronic; E86.0 Dehydration; E87.6 Hypokalemia; Z68.29 Body mass index [BMI] 29.0-29.9, adult; Z91.19 Patient's noncompliance with other medical treatment and regimen
CPT/HCPCS: 36415; 36600; 71010; 76775; 80048; 80053; 80307; 81001; 82010; 82043; 82150; 82570; 82805; 82962; 83036; 83690; 83735; 83930; 83935; 84100; 84300; 85007; 85025; 85027; 87081; 87086; 87205; 93005; 96361; 96374; J0696; J1815; J7060